=== PATIENT | female | born 1950 | race Caucasian/White ===

== ENCOUNTER → 2024-03-11 10:54 | Outpatient (REF) | payer MEDICARE, SELFPAY ==
[2024-03-11 13:01] LABS: Urine Albumin Trace (Neg - Trace); Urine Bilirubin Negative (Negative); Urine Character Very Cloudy (Clear); Urine Color Yellow; Urine Glucose Negative (Negative); Urine Ketone Negative (Negative); Urine Leukocyte 2+ (Negative); Urine Nitrite Positive (Negative); Urine Occult Blood 3+ (Negative); Urine Specific Gravity 1.025 (<1.030); Urine Urobilinogen Negative (Neg - 1+)
[2024-03-11 13:35] LABS: Urine Bacteria Many (Negative); Urine Squamous Cell 0-2 /LPF (Few)
[2024-03-11 13:36] LABS: Urine Red Blood Cell 0-2 /HPF (0-2); Urine White Cell 50-60 /HPF (0-5)
== END ==
LOC: HWLAB 10:54
PROVIDERS: ATTENDING PHYSICIAN Obstetrics & Gynecology; FAMILY PHYSICIAN Family Medicine
DX: N39.0 Urinary tract infection, site not specified (principal)
CPT/HCPCS: 81003; 81015; 87077; 87086; 87186

== ENCOUNTER 2025-03-05 16:46 | Inpatient (IN) | payer OTHER, SELFPAY ==
[2025-03-05 11:15] VITALS: BP 118/75
[2025-03-05 11:30] LABS: Hematocrit 45.6 % (37.0-47.0); Hemoglobin 14.8 g/dL (12.0-16.0); Mean Corp Hgb Conc. 32.5 g/dL (33.0-37.0); Mean Corpuscular Volume 87.7 fL (81.0-99.0); Nucleated Red Blood Cells % 0 %; Platelet Count 244 10^3/uL (130-400); Red Cell Dist. Width 14.8 % (11.5-14.5)
[2025-03-05 11:53] LABS: ALT (SGPT) 15 U/L (0-35); AST (SGOT) 15 U/L (14-36); Albumin 3.9 g/dl (3.5-5.0); Alkaline Phosphatase 87 U/L (38-126); Blood Urea Nitrogen 18 mg/dl (7-17); Calcium 9.1 mg/dl (8.4-10.2); Carbon Dioxide 27 mmol/L (22-30); Chloride 102 mmol/L (98-107); Glucose 145 mg/dl (70-99); Lipase 76 U/L (23-300); Potassium 3.6 mmol/L (3.5-5.1); Sodium 135 mmol/L (135-145); Total Protein 7.4 g/dl (6.3-8.2); eGFR > 60.00
[2025-03-05 12:09] VITALS: BP 144/83
--- NOTE | 2025-03-05 12:15 | ED.GENMED ---
History of Present Illness
<Curt Schwartz PA-C - Last Filed: 03/05/25 15:39>
General
Chief Complaint: Dehydration Symptoms
Time Seen by Provider: 03/05/25 12:04
History of Present Illness
History of Present Illness:
74-year-old female presents to the emergency department for evaluation of generalized weakness as well as diarrhea for the past 5 days. Reports that at the onset of diarrhea she began to feel very lightheaded and fell to the ground, and laid on the
ground for several hours until her was able to assist her. She reports having general aches and pains since that time but for the bulk of the past 5 days has been able to tolerate only small sips of water and no oral food. Did eat a piece
of toast this morning however. Diarrhea is voluminous, watery, and yellow in color, no blood. She reports mild lower abdominal pain and scant vomiting. No recent suspicious food intake. Prior abdominal surgical history includes cholecystectomy.
No fevers or night sweats.
Past History
<Curt Schwartz PA-C - Last Filed: 03/05/25 15:39>
Past History
ED Past Medical History: GERD and HTN
ED Past Surgical History: None
Social History
Tobacco: Non-smoker
Alcohol: None
Drug: None
Personal:
Living: with family
Review of Systems
<Curt Schwartz PA-C - Last Filed: 03/05/25 15:39>
Review of Systems
Allergies reviewed?: Yes
All Other Systems: ROS reviewed and negative except as documented in HPI and ROS
Phy Exam
<Curt Schwartz PA-C - Last Filed: 03/05/25 15:39>
Physical Exam
Physical Exam:
GEN: Well appearing, NAD, WDWN
HEENT: Oral mucosa moist, no scleral icterus
Cardiac: Regular rate and rhythm, no murmurs
Lung: No respiratory distress, no tachypnea
Abdomen: Soft, moderate diffuse lower abdominal tenderness, no rigidity or peritoneal signs
MSK: No gross deformity or injuries
Skin: Good color, no pallor or jaundice, no rashes
Neuro: AO x3, moves all extremities freely
Psych: Calm, cooperative
Course
<Curt Schwartz PA-C - Last Filed: 03/05/25 15:39>
Orders/Labs/Results
Orders:
Orders
03/05/25 11:22
Complete Blood Count/With Diff Urgent
Comprehensive Metabolic Panel Urgent
Creatine Phosphokinase Urgent
Lipase Urgent
03/05/25 12:13
CT Abd/Pel (IV only)-DH only Urgent
Comment:
Reason For Exam: lower abd pain, diarrhea
Lactated Ringers [Lr] 1,000 ml IV BOLUS
03/05/25 12:14
Add On- LAB Urgent
Tests Added?: CPK
03/05/25 14:25
Urinalysis Reflex To Culture Urgent
Date Specimen was Collected: 03/05/25
Time Specimen was Collected: 14:21
Urine Microscopic Reflex Cult Urgent
Urine Culture Urgent
RENAY Source: U
Specimen Description:
Date Specimen was Collected: 03/05/25
Time Specimen was Collected: 14:21
03/05/25 15:18
C DIFF [C difficile Antigen & Toxins] Urgent
RENAY Source: Feces/Stool
Specimen Description:
Stool Culture Urgent
RENAY Source: Feces/Stool
Specimen Description:
Abnormal Lab Results
03/05/25 03/05/25
11:22 14:25
MCHC 32.5 L g/dL
(33.0-37.0)
RDW 14.8 H %
(11.5-14.5)
Absolute Monos (auto) 0.7 H 10^3/uL
(0.1-0.6)
Lymphocytes % 19.1 L %
(20.5-51.1)
Monocytes % 9.9 H %
(1.7-9.3)
BUN 18 H mg/dl
(7-17)
Glucose 145 H mg/dl
(70-99)
Creatine Kinase 25 L U/L
(30-135)
Ur Occult Blood Reflex 2+ A
(Negative)
Leukocyte Esterase Rfl 1+ A
(Negative)
Urine RBC 3-6 A /HPF
(0-2)
Urine Bacteria (Reflex) Few A
(Negative)
Urine Albumin (Reflex) 2+ A
(Neg - Trace)
03/05/25 11:22
03/05/25 11:22
Vital Signs
Initial and Last Documented VS:
Initial Vital Signs
Temp Pulse Resp BP Pulse Ox
36.9 C 78 16 118/75 98
03/05/25 11:15 03/05/25 11:15 03/05/25 11:15 03/05/25 11:15 03/05/25 11:15
Last Documented Vital Signs
Temp Pulse Resp BP Pulse Ox
36.9 C 58 17 144/83 98
03/05/25 11:15 03/05/25 14:15 03/05/25 14:15 03/05/25 12:09 03/05/25 12:16
<Zain Lee MD - Last Filed: 03/05/25 16:25>
Orders/Labs/Results
Orders:
Orders
03/05/25 11:22
Complete Blood Count/With Diff Urgent
Comprehensive Metabolic Panel Urgent
Creatine Phosphokinase Urgent
Lipase Urgent
03/05/25 12:13
CT Abd/Pel (IV only)-DH only Urgent
Comment:
Reason For Exam: lower abd pain, diarrhea
Lactated Ringers [Lr] 1,000 ml IV BOLUS
03/05/25 12:14
Add On- LAB Urgent
Tests Added?: CPK
03/05/25 14:25
Urinalysis Reflex To Culture Urgent
Date Specimen was Collected: 03/05/25
Time Specimen was Collected: 14:21
Urine Microscopic Reflex Cult Urgent
Urine Culture Urgent
RENAY Source: U
Specimen Description:
Date Specimen was Collected: 03/05/25
Time Specimen was Collected: 14:21
03/05/25 15:18
C DIFF [C difficile Antigen & Toxins] Urgent
RENAY Source: Feces/Stool
Specimen Description:
Stool Culture Urgent
RENAY Source: Feces/Stool
Specimen Description:
Abnormal Lab Results
03/05/25 03/05/25
11:22 14:25
MCHC 32.5 L g/dL
(33.0-37.0)
RDW 14.8 H %
(11.5-14.5)
Absolute Monos (auto) 0.7 H 10^3/uL
(0.1-0.6)
Lymphocytes % 19.1 L %
(20.5-51.1)
Monocytes % 9.9 H %
(1.7-9.3)
BUN 18 H mg/dl
(7-17)
Glucose 145 H mg/dl
(70-99)
Creatine Kinase 25 L U/L
(30-135)
Ur Occult Blood Reflex 2+ A
(Negative)
Leukocyte Esterase Rfl 1+ A
(Negative)
Urine RBC 3-6 A /HPF
(0-2)
Urine Bacteria (Reflex) Few A
(Negative)
Urine Albumin (Reflex) 2+ A
(Neg - Trace)
03/05/25 11:22
10/30/25 11:22
Vital Signs
Initial and Last Documented VS:
Initial Vital Signs
Temp Pulse Resp BP Pulse Ox
36.9 C 78 16 118/75 98
03/05/25 11:15 03/05/25 11:15 03/05/25 11:15 03/05/25 11:15 03/05/25 11:15
Last Documented Vital Signs
Temp Pulse Resp BP Pulse Ox
36.9 C 58 17 144/83 98
03/05/25 11:15 03/05/25 14:15 03/05/25 14:15 03/05/25 12:09 03/05/25 12:16
<Curt Schwartz PA-C - Last Filed: 03/05/25 15:39>
MDM/Problems Addressed
MDM/Problems Addressed:
Patient's imaging shows no obvious findings suggestive of a cause of her abdominal symptoms. Incidentally it is noted that she has air in the bladder but did not have any recent instrumentation, urinalysis is negative. Enterovesicular fistula is
possible however she does not have feculent urine to suggest this as an etiology. She also had no surgical injuries that would clearly suggest that this is likely, lastly has no inflammatory bowel disease history. She was also made aware of the
finding on her CT scan of renal masses on the left kidney that will need further follow-up with MRI. She was given IV fluids, still feels weak and very unsteady with ambulation thus we will admit for further IV hydration, hopefully we can obtain
stool specimens for further completeness and clarity of her illness.
<Curt Schwartz PA-C - Last Filed: 03/05/25 15:39>
*Pulse Oximetry
SaO2: 98
Oxygen Mode of Delivery: Room air
Patient hypoxic: no
*Critical Care Note
Total Time (30-74mins, 75-104mins- exclusive of procedures): Not Applicable
ED Attending Note
<Curt Schwartz PA-C - Last Filed: 03/05/25 15:39>
-
Portions of this chart may have been created with voice recognition software.� Occasional wrong word or��sound alike� substitutions may have occurred due to the inherent limitations of voice recognition software.
<Zain Lee MD - Last Filed: 03/05/25 16:25>
ED Attending Note
Patient seen and examined by attending physician: Yes
ED Attending Note:
I have seen and evaluated the patient with a [id number] encounter. I have spoken to the advance practicer provider and involved in the medical history, the physical exam, medical decision making.
Evaluation and management service: agree unless noted differently below.
Results interpretation: agree unless noted differently below.
Focused HPI: 74-year-old female with history as noted presents for fatigue, diarrhea, vomiting over the past few days. Seen by her primary doctor and they were concerned for dehydration. She denies abdominal pain or fever. Denies other acute
complaints.
Physical exam: Awake alert no distress. Vital signs normal. Abdomen soft and nontender.
Medical Decision Makin-year-old female presents with fatigue associated with diarrhea and vomiting and increased generalized weakness. Labs were sent off including a CBC and a CMP which showed no clinically significant abnormalities.
Urinalysis contaminated but no signs of acute infection. CT showed new renal mass as well as air in the urinary bladder of unclear etiology. Will admit for continued workup and IV hydration.
Discharge Plan
Departure
Patient Disposition: Admit
Date of Disposition: 03/05/25
Time of Disposition: 15:26
Admit to: Med/Surg
Presentation/result/management discussed w/ accepting MD/DO: Hospitalist
Discharge Problem:
Diarrhea, Acute dehydration, Renal mass
Prescriptions:
No Action
losartan 50 mg Tablet
50 mg PO NOON
famotidine 40 mg Tablet
40 mg PO NOON
metoprolol succinate 25 mg Tablet Extended Release 24 Hr
25 mg PO NOON
sertraline 50 mg Tablet
25 mg PO NOON
loperamide 2 mg Tablet
2 mg PO BIDPRN PRN (Reason: diarrhea)
acetaminophen 325 mg tablet
325 mg PO DAILY
Referrals:
Jose Alberto Ag MD [Family Provider, Family Practice]
Interventions
Interventions:
*Risk Screen - Suicide Last Done: 03/05/25 11:15
*General Assessment Last Done: 03/05/25 11:15
*Neglect/Abuse Screening Last Done: 03/05/25 11:15
*ED- Fall Risk Assessment Last Done: 03/05/25 11:15
*ED COVID-19 Vaccine History Last Done: 03/05/25 11:15
*ED Influenza Vaccine History Last Done: 03/05/25 11:15
ED- Cardiac Assessment Last Done: 03/05/25 16:08
ED- Neurological Assessment Last Done: 03/05/25 12:34
ED- Pulmonary Assessment Last Done: 03/05/25 16:08
Discharge Date and Time
Print Language: MALAGASY
[2025-03-05] MEDS: LR 1000 IV (12:25)
[2025-03-05 12:34] VITALS: BMI 32.9
[2025-03-05 14:50] LABS: Urine Character Clear (Clear)
--- NOTE | 2025-03-05 16:30 | HPS.HSE ---
Addendum entered and electronically signed by Primitivo Weaver MD 03/05/25 17:10:
I saw and examined the patient.
The LUBRICATION SUPERVISOR's note was reviewed and I agree with the note.
Comment:
74-year-old female past medical history of urinary urgency, anxiety, depressive disorder, hypertension, hyperlipidemia is presenting from home with weakness. Patient was complaining of severe volume in his diarrhea. States that symptoms started 5
days ago. States that she started feeling lightheaded. Patient fell to the ground and stayed on the ground for several hours because she was too weak to get up. With her to come and assist her. Also complaining of generalized body aches
and pains. Not able to tolerate much p.o. intake. States some mild lower abdominal pain. Also states of foul-smelling urine. States no bowel movement since yesterday
General: in ER bed comfortable
HEENT: NormoCephalic, Moist mucous membranes and Atraumatic
Respiratory: Rales, oxygen, tachypneic
Cardiac: S1-S2, regular
GI: Soft, + Tenderness throughout, Non Distended and Normal Bowel Sounds; No Organomegaly
Rectal: Deferred by Provider
Musculoskeletal: No Clubbing, No Cyanosis and positive lower extremity edema
Skin: No Rash
Neuro: AO x 3 and Nonfocal/grossly intact
Psych: Calm
Impression
Diarrhea likely secondary to viral versus bacterial gastroenteritis in the setting of prior right hemicolectomy
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
Dehydration
Incidental finding of left renal mass
Primary hypertension
Hyperlipidemia
Mood disorder
Plan
Stool studies including C. difficile, stool cultures
Check ova and parasite
Keep patient on IV fluids
Liquid diet for now and advance as tolerated
Check orthostatics
Hold blood pressure meds for 24 hours and reassess
Urology eval
DVT prophylaxis
I spent a total of 80 minutes with the patient or on the floor. More than 50% of this time involved counseling and coordination of care.
Original Note:
Family Physician
-
Family Physician: Jose Alberto Ag
Chief Complaint
-
Vomiting and Diarrhea
History of Present Illness
Patient is a 74 y/o female past medial history of hypertension, and anxiety who presents with vomiting and diarrhea for 5 days. Patient reports voluminous amount of mostly yellow liquid diarrhea without blood, last episode yesterday. She reports
many episode of vomiting. She was able to tolerate a single piece of toast and small amount of orange juice this morning, but remains very nausea as previously she could only tolerate small amount of water. She reports generalized weakness and
muscle aches/pain, but denies fevers.She denies recent antibiotics, recent travel, unusual food intake or contacts with similar symptmos
Further discussion with patient reveal she has been having intermittent urinary problems since the summer. She reports intermittent episodes of very foul smelling urine with dysuria. She reports some when she urinate it makes a strange noise and
sometimes she passes air.
Medical History
Past Medical History
Past Medical History: Reports Other
Additional Past Medical History:
Essential Hypertension
Anxiety
Diverticulosis / Diverticulitis
Past Surgical History: Reports Other
Additional Past Surgical History:
Colon Resection
Cholecystectomy
Bilateral Cataracts
Tonsillectomy
Social History
Tobacco: Non-smoker
Alcohol: None
Family History
Family History: Other (Mother: Dementia, alive at age 95)
Allergies / Home Medications
Allergies reflects when Allergies were last updated in [employer].
Home Medications with original date entered in [employer]
Allergy/Medication List:
Allergies
Allergy/AdvReac Type Severity Reaction Status Date / Time
No Known Allergies Allergy Verified 03/05/25 11:17
Home Medications
famotidine 40 mg tablet 40 mg PO NOON gerd 03/09/23
losartan 50 mg tablet 50 mg PO NOON Blood Pressure 03/09/23
metoprolol succinate 25 mg tablet,extended release 24 hr 25 mg PO NOON Blood Pressure 03/09/23
sertraline 50 mg tablet 25 mg PO NOON Mental Health/Anxiety 03/09/23
acetaminophen 325 mg tablet 325 mg PO DAILY mild pain 03/05/25
loperamide 2 mg tablet 2 mg PO BIDPRN PRN diarrhea 03/05/25
Review of Systems
-
A 12 point ROS was completed and negative except as noted: Yes
Constitutional: Denies Fever
Respiratory: Denies Cough or Trouble Breathing
Cardiac: Denies Chest Pain or Palpitations
Abdomen/GI: Reports See HPI
Physical Exam
Vital Signs
Vital Signs
Temp Pulse Resp BP Pulse Ox
98.5 F 58 17 144/83 98
03/05/25 11:15 03/05/25 14:15 03/05/25 14:15 03/05/25 12:09 03/05/25 12:16
Physical Exam
General: Comfortable and Conversant
HEENT: NormoCephalic, Anicteric and Atraumatic
Respiratory: Clear and Non Labored Respirations
Cardiac: S1/S2 and Regular Rhythm
GI: Soft, Non Distended and Tender (Mild throughout without rebound or guarding)
Rectal: Deferred by Provider
Musculoskeletal: No Clubbing, No Cyanosis and No Edema
Skin: Warm and Dry
Neuro: Awake, Alert, Oriented and Nonfocal/grossly intact
Psych: Calm
Laboratory Results
-
03/05/25 11:22
03/05/25 11:22
Laboratory Results
Total Bilirubin 0.7 mg/dl (0.2-1.3) 03/05/25 11:22
AST 15 U/L (14-36) 03/05/25 11:22
ALT 15 U/L (0-35) 03/05/25 11:22
Alkaline Phosphatase 87 U/L (38-126) 03/05/25 11:22
Lipase 76 U/L (23-300) 03/05/25 11:22
Abd/Pelvis CT:
1. Ill-defined mass within the lower pole of the left kidney, measuring 2.4 cm in diameter. Additional ill-defined mass within the upper pole of the left kidney measuring 2.4 cm in diameter. Findings are concerning for renal cell carcinoma. Consider
postcontrast MRI of the abdomen for further characterization and/or renal ultrasound.
2. Air within the urinary bladder. This may be related to recent instrumentation. In the absence of instrumentation, enteric vesicular fistula should be excluded.
Data Reviewed
-
CT Scan: Report Reviewed by me
Lab Data: Labs Reviewed by me
Impression/Plan
-
Gastroenteritis, suspect viral in nature
-Check stool studies
-Allow clear liquids
-Continue IVFs
Air with Urinary Bladder
-Symptoms raise concern for possible colovesicular fistula
-Consult colorectal surgery
Left Renal Masses, possible renal cell carcinoma
-Consult Urology
Essential Hypertension
-Hold losartan and metoprolol for now
Anxiety
-Continue sertraline
DVT proph: Lovenox
Code Status: Full Code
--- NOTE | 2025-03-05 18:00 | CON.MD ---
Consultation - Medical
-
see dictated note
pt with hx of right nayely colectomy at [facility] in 2019 for diverticular dz and dyspalstic polyp
had colpocleisis with dr pablo in 2022
has had recurrent UTI's over the last 18 months
presents now with weakness, dizziness, loose stools
has some chronic urinary sx's over the last 3 months; dysuria/odor/odd sound when urinating but no erickson pneumaturia or fecaluria
had ct- air in bladder with adjacent colon- ? fistula
also ? masses in left kidney
plan
pt stable
hydrate/ucx/iv antibx
air in bladder could be due to UTI- but fistula possible- colorectal to evaluate- at some point will need cysto
down the round- MRI for left renal masses
reviewed with pt and will follow
Consultation
-
Date/Time Consultation Requested: 03/05/25 at 4pm
Date/Time Consultation Performed: 03/05/25 at 6pm
Requesting Provider: ER
Performing Provider: Dr Carrasco
Reason for Consultation: renal mass- air in bladder
[2025-03-05] MEDS: NSS 1000 IV (18:45)
[2025-03-05] MEDS: LOVENOX 40 MG SC (18:46)
[2025-03-05 19:07] VITALS: BP 130/74
--- NOTE | 2025-03-05 20:36 | CON.CRS ---
Consultation
-
Date/Time Consultation Performed: 03/05/2025
Performing Provider: Markus Michelle MD
Reason for Consultation: Colovesical fistula
Medical History
-
History of Present Illness:
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 Whitten), diverticulitis (many flares over the years, no flare since before 2018) who presents with
weakness and diarrhea for 5 days. On Sunday, she felt so weak, she slipped out of her bed and fell on the floor. She was not able to get up for several hours. She has pain along her right side. Over the ensuing days, she was sleeping a lot, had
poor p.o. intake and nausea with multiple episodes of diarrhea each day. She reported dizziness as well. There was 1 day where she thought the stool was blackish, but denies gross blood. She denies fevers, chest pain or SOB. She does complain of
pneumaturia and foul-smelling urine for several months. She has been treated for a low-grade UTI since October.
In the ED, WBC 7.3, UA with bacteria and positive LE, negative nitrates. CT scan showed left kidney mass concerning for RCC as well as air within the urinary bladder, concerning for colovesical fistula.
Past Medical History
Past Medical History: Other (As above)
Past Surgical History: Other (Colpocleisis by Dr. Pacheco, right hemicolectomy 2019, cholecystectomy at 21 years old)
Social History
Tobacco: Non-Smoker
Alcohol: Occasional (Rare)
Drug: None
Personal:
Living: With Family
Family History
Family History: Other (Denies CRC)
Allergies / Home Medications
Allergy/AdvReac Type Severity Reaction Status Date / Time
No Known Allergies Allergy Verified 03/05/25 11:17
�Medication �Instructions �Recorded �Confirmed �Type
famotidine 40 mg tablet 40 mg PO NOON gerd 03/09/23 03/05/25 History
losartan 50 mg tablet 50 mg PO NOON Blood Pressure 03/09/23 03/05/25 History
metoprolol succinate 25 mg 25 mg PO NOON Blood Pressure 03/09/23 03/05/25 History
tablet,extended release 24 hr
sertraline 50 mg tablet 25 mg PO NOON Mental Health/Anxiety 03/09/23 03/05/25 History
acetaminophen 325 mg tablet 325 mg PO DAILY mild pain 03/05/25 03/05/25 History
loperamide 2 mg tablet 2 mg PO BIDPRN PRN diarrhea 03/05/25 03/05/25 History
Review of Systems
-
A 10 point review of systems was completed, and was negative except as per HPI.
Physical Exam
Vital Signs
Temp 97.5 F 03/05/25 19:07
Pulse 65 03/05/25 19:07
Resp Rate 16 03/05/25 19:07
Blood pressure 130/74 03/05/25 19:07
SaO2 99 03/05/25 19:07
03/04/25 03/05/25 03/06/25
06:59 06:59 06:59
Actual Weight 87 kg
Body Mass Index (BMI) 32.9
Lab Results / Allergies
03/05/25 11:22
03/05/25 11:22
WBC 7.3 10^3/uL (4.8-10.8) 03/05/25 11:22
Hgb 14.8 g/dL (12.0-16.0) 03/05/25 11:22
Hct 45.6 % (37.0-47.0) 03/05/25 11:22
Plt Count 244 10^3/uL (130-400) 03/05/25 11:22
Abs Immat Gran (auto) 0.0 10^3/uL (0-0.05) 03/05/25 11:22
Neutrophils % 69.0 % (42.2-75.2) 03/05/25 11:22
Allergy/AdvReac Type Severity Reaction Status Date / Time
No Known Allergies Allergy Verified 03/05/25 11:17
Physical Exam
General: Well Developed, Well Nourished and No Apparent Distress
HEENT: Normocephalic and Atraumatic
Respiratory: Non Labored Respirations
Cardiac: S1/S2
GI: Soft, Non Distended and Tender (Minimally to mildly tender in the suprapubic to LLQ, no rebound or guarding)
Skin: Warm and Dry
Neuro: AO x 3
Data Reviewed
-
CT Scan: Image Personally Visualized and interpreted and Discussed with Patient
Labs: Labs Reviewed by me and Discussed with Patient
Assessment / Plan
-
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 Whitten), diverticulitis (many flares over the years, no flare since before 2019) who presents with
weakness and diarrhea for 5 days. Additionally reports pneumaturia and chronic UTI for several months. Last colonoscopy 06/[address] Madera, which showed a healthy ileocolic anastomosis, transverse TA, rectal HP, random biopsies for microscopic
colitis were negative and multiple diverticula in the sigmoid, descending and transverse colon.
In the ED, WBC 7.3, UA with bacteria and positive LE, negative nitrates. CT scan showed left kidney mass concerning for RCC as well as air within the urinary bladder, concerning for colovesical fistula.
�Likely dehydrated due to gastroenteritis, appreciate hospitalist
� Concern for colovesical fistula on CT; clinically, high suspicion for colovesical fistula due to prior history of diverticulitis and report of pneumaturia
�Recommend CT AP with p.o. and rectal contrast (no IV contrast) to confirm colovesical fistula
�Explained the treatment for colovesical fistula is surgery; however, this can usually be done electively and any infectious complications can usually be treated medically with antibiotics; if patient clinically improves, okay for discharge from my
standpoint after CTAP is complete and follow-up to discuss definitive management
�Appreciate urology consult; patient will need MRI outpatient
� Appreciate hospitalist
[2025-03-05 23:21] VITALS: BP 129/70
[2025-03-06] MEDS: NSS 1000 IV (04:34)
[2025-03-06 06:40] LABS: Hematocrit 38.5 % (37.0-47.0); Hemoglobin 12.4 g/dL (12.0-16.0); Mean Corp Hgb Conc. 32.2 g/dL (33.0-37.0); Mean Corpuscular Volume 90.4 fL (81.0-99.0); Platelet Count 219 10^3/uL (130-400); Red Cell Dist. Width 14.7 % (11.5-14.5)
[2025-03-06 07:00] VITALS: BP 141/69
[2025-03-06 07:27] LABS: Blood Urea Nitrogen 11 mg/dl (7-17); Calcium 8.5 mg/dl (8.4-10.2); Carbon Dioxide 27 mmol/L (22-30); Chloride 103 mmol/L (98-107); Estimated Creatinine Clearance 89 ml/min; Glucose 92 mg/dl (70-99); Potassium 3.5 mmol/L (3.5-5.1); Sodium 134 mmol/L (135-145); eGFR > 60.00
--- NOTE | 2025-03-06 07:49 | W.PN.URO.CBU ---
Today's Communication / Plan
-
check ucx
check ct per colorectal
Assessment / Plan
-
general malaise and weakness
? if air in bladder simply recurrent UTI- or fistula; awaiting ucx/ ct with oral contrast- colorectal following
at some point- will need outpt MRI given left kidney findings
Diagnosis
-
Date of Service: March 06, 2025
-
Patient Diagnosis:
hx of prolapse repair
hx of recurrent UTI
? ev fistula
? left RCC
Subjective
-
pt still says she doesnt feel well- but hard time verbalizing what specifically is the problems
nl bowel movement this am
says her urination is normal
Objective
-
Vital Signs
Temp Pulse Resp BP Pulse Ox
97.9 F 66 18 129/70 97
03/05/25 23:21 03/05/25 23:21 03/05/25 23:21 03/05/25 23:21 03/05/25 23:21
Intake and Output
03/05/25 03/06/25 03/07/25
06:59 06:59 06:59
Intake Total 480 / 480
Balance 480 / 480
Intake:
Oral fluids 480 / 480
Other:
Number of approximated SMALL 1
amounts of urine
Number of approximated MODERATE 3
amounts of urine
Laboratory Results
03/06/25 05:39
03/06/25 05:39
Physical Exam
-
General - no acute distress
Abdomen - soft, non-tender
Genitalia - normal- no prolapse/mass or discharge
Skin - warm & dry with no rash
Neuro - AOx3, no motor deficits
Extremities - no clubbing, no cyanosis, no edema
[2025-03-06] MEDS: OMNIPAQUE 50 ML PO (08:34)
--- NOTE | 2025-03-06 08:42 | W.PN.HOSP.TC ---
Addendum entered and electronically signed by Arun Linton MD 03/06/25 21:54:
Attending Addendum-
I saw and evaluated the patient. I reviewed the resident�s note and agree with findings and plan as documented in the resident�s note. Sub: continues to have significant loose stools and feels dizzy on ambulation. tolerating clears. Denies abd pain
NV fevers chills. increased urinary frequency. Full 12 point ROS reviewed and negative except as documented Exam: Vitals reviewed in chart GEN-NAD heart RRR lungs clear abd soft NT ND pos BS skin-dry
Plan:
# Acute viral enteritis
-continues to have significant diarrhea with volume depletion
-stool studies-neg thus far
-advance to LR diet
-Continue IVF
# Air within the Urinary Bladder
-Symptoms raised concern for possible colovesicular fistula
-colorectal surgery input appreciated
-repeat CT a/p for eval 03/06-There is no CT evidence for colovesical fistula
#Left Renal Masses, possible renal cell carcinoma
-appreciate Urology input-doubt RCC
-OP MRI for eval
#UTI
-urine by-[id number] pend
-start Augmentin based on previous cx
#Hyponatremia-mild
-hypovolemic- cont IVF, repeat BMP in am
#Essential Hypertension
-Hold losartan and metoprolol for now
#Anxiety
-Continue sertraline
DVT proph: Lovenox
Code Status: Full Code
Dispo DC home in am
ACP
Patient consented to discuss, was alone, time spent explanation of advance directives, changes in health status, patient�s health care wishes if the patient becomes unable to make health decisions, goals of care, code status, and prognosis- 16
minutes
Time spent coordinating care, review of plan of care with resident, personally reviewed previous records in EMR, med rec, labs, radiology, d/w nursing, family total time documented is exclusive of any additional time listed that was spent in advance
care planning discussion -�51 minutes
Original Note:
Today's Communication/Plan
-
CT abdomen pelvis with p.o. contrast demonstrated no fistula.
Urine culture demonstrated E. coli. Sensitivities pending. Empiric Augmentin initiated.
Stool cultures pending.
Monitoring volume status and blood pressures. Likely can resume antihypertensive soon.
Assessment / Plan
Assessment / Plan
Impression:
74-year-old female past medical history of urinary urgency, anxiety/depression, HTN, HLD is presenting from home with weakness/lightheadedness and large volume diarrhea for 5 days, likely secondary to viral versus bacterial gastroenteritis in the
setting of prior right hemicolectomy.
5 days ago, patient slipped from bed to the floor and stayed on the ground for several hours because she was too weak to get up. Waited for to come and assist her. On following days, she was sleeping more, had decreased p.o. intake,
nausea, and multiple episodes diarrhea daily. Also complaining of generalized body aches and pains. Endorsed blackish stool 1 day, but denied gross blood. No bowel movement for 2 days.
Endorsed pain along her right side. Endorsed pneumaturia, foul-smelling urine for several months, and mild lower abdominal pain. She has been treated for low-grade UTI since October. Denied fevers, chest pain, SOB.
In the ED, WBC 7.3, UA with bacteria and positive LE, negative nitrates. CT scan showed left kidney mass concerning for RCC as well as air within the urinary bladder, concerning for colovesical fistula.
PSH:
Right hemicolectomy 2019 for diverticulitis and colon polyp
Colpocleisis 2022
Cholecystectomy at 21 years old
Abd/Pelvis CT with IV contrast:
1. Ill-defined mass within the lower pole of the left kidney, measuring 2.4 cm in diameter. Additional ill-defined mass within the upper pole of the left kidney measuring 2.4 cm in diameter. Findings are concerning for renal cell carcinoma. Consider
postcontrast MRI of the abdomen for further characterization and/or renal ultrasound.
2. Air within the urinary bladder. This may be related to recent instrumentation. In the absence of instrumentation, enteric vesicular fistula should be excluded.
Last colonoscopy 06/[address] Madera, which showed a healthy ileocolic anastomosis, transverse TA, rectal HP, random biopsies for microscopic colitis were negative and multiple diverticula in the sigmoid, descending and transverse colon.
Plan:
#Gastroenteritis, suspect viral in nature
#Dehydration
Right hemicolectomy in 2019 at [facility] for diverticular disease and dysplastic polyp
- Stool norovirus: negative
� Stool C. difficile antigen and toxin: negative
� Stool culture: Pending
� Stool ova and parasites: Pending
- Allow clear liquids. Advance as tolerated
- Continue IVFs: Renewed
� Orthostatic vitals pending
#Air in urinary Bladder, foul-smelling urine.
Concern for colovesicular fistula versus UTI
- Recurrent UTIs in last 18 months
� UA not convincing for UTI: 11-15 squamous epithelial cells, few bacteria, leukocyte esterase 1+, nitrates negative, WBC 3-5, RBC 3-6
- Urine cx: E. coli. Sensitivities pending
� Started Augmentin 500 mg twice daily empirically
Colpocleisis [address] Pacheco (vaginal culture, typically for pelvic organ prolapse)
Colorectal surgery consulted
- CT abdomen pelvis with p.o. and rectal contrast (no IV contrast) to confirm colovesicular fistula: No fistula
� Explained the treatment for colovesical fistula is surgery; however, this can usually be done electively and any infectious complications can usually be treated medically with antibiotics; if patient clinically improves, okay for discharge from my
standpoint after CTAP is complete and follow-up to discuss definitive management
#Left Renal Masses, possible renal cell carcinoma
Urology consulted
- Hydrate, urine culture, IV antibiotics
- Cystoscopy outpatient
- MRI outpatient for left renal masses
#Essential Hypertension
-Hold losartan and metoprolol for 24 hours and reassess. BP stable in 130-140s. Plan to resume tomorrow after patient demonstrates tolerating solid food and oral rehydration
#Anxiety and depression
-Continue sertraline
DVT proph: Lovenox
Code Status: Full Code
Anticipated Discharge: Within 24 hours
Subjective/Interval History
-
Date of Service: March 06, 2025
No acute events overnight. Normal bowel movement and urinary voiding this morning. Patient states she feels less weak/she feels better overall. Endorses continued large-volume watery diarrhea.
Objective Data
-
Labs:
Lab Results
03/05/25 03/05/25 03/06/25
11:22 14:25 05:39
WBC 7.3 7.0
RBC 5.20 4.26
Hgb 14.8 12.4
Hct 45.6 38.5
MCV 87.7 90.4
MCH 28.5 29.1
MCHC 32.5 L 32.2 L
RDW 14.8 H 14.7 H
Plt Count 244 219
MPV 9.5 9.6
Abs Immat Gran (auto) 0.0
Absolute Neuts (auto) 5.0
Absolute Lymphs (auto) 1.4
Absolute Monos (auto) 0.7 H
Absolute Eos (auto) 0.1
Absolute Basos (auto) 0.1
Immature Gran % 0.1
Neutrophils % 69.0
Lymphocytes % 19.1 L
Monocytes % 9.9 H
Eosinophils % 1.2
Basophils % 0.7
Nucleated RBC % 0
Sodium 135 134 L
Potassium 3.6 3.5
Chloride 102 103
Carbon Dioxide 27 27
BUN 18 H 11
Creatinine 0.7 0.5 L
Estimated Creat Clear 89
eGFR > 60.00 > 60.00
Glucose 145 H 92
Calcium 9.1 8.5
Total Bilirubin 0.7
AST 15
ALT 15
Alkaline Phosphatase 87
Creatine Kinase 25 L
Total Protein 7.4
Albumin 3.9
Lipase 76
Urine Color Yellow
Urine Clarity Clear
Urine pH 6.5
Ur Specific [place] 1.005
Urine Ketones Negative
Ur Occult Blood Reflex 2+ A
Urine Nitrite (Reflex) Negative
Urine Bilirubin Negative
Urine Urobilinogen 1+
Leukocyte Esterase Rfl 1+ A
Urine RBC 3-6 A
Urine WBC (Reflex) 3-5
Ur Squamous Epith Cells 11-15
Urine Bacteria (Reflex) Few A
Urine Glucose Negative
Urine Albumin (Reflex) 2+ A
03/05/25 14:25 Urine Urine Culture - Preliminary
Escherichia coli
03/05/25 22:21 Feces/Stool Norovirus (PCR) - Final
Negative for Norovirus GI and GII.
03/05/25 22:23 Feces/Stool C. difficile GDH Antigen & Toxins - Final
Negative for toxigenic C.difficile
Vital Signs:
Vital Signs
Temp Pulse Resp BP Pulse Ox
97.9 F 66 18 129/70 97
03/05/25 23:21 03/05/25 23:21 03/05/25 23:21 03/05/25 23:21 03/05/25 23:21
I&O
03/05/25 03/06/25 03/07/25
06:59 06:59 06:59
Intake Total 480 / 480
Balance 480 / 480
Weight - last 4 days
03/04/25 03/05/25 03/06/25 03/07/25
06:59 06:59 06:59 06:59
Actual Weight 87 kg
Review of Systems
-
History Source: Patient
All other systems: Reviewed and negative
Physical Exam
-
General: Well Developed, Well Nourished, No Apparent Distress, Comfortable and Conversant
HEENT: Normocephalic, Atraumatic, Anicteric, Nose Appears Normal and Ears Appear Normal
Respiratory: Clear to Auscultation
Cardiac: Regular Rhythm
GI: Soft, Nontender, Nondistended and Normal Bowel Sounds
Musculoskeletal: No Clubbing, No Cyanosis, Edema, Right Lower Extrem and Edema, Left Lower Extrem
Skin: Warm and Dry
Neuro: Awake and Alert
Psych: Calm
--- NOTE | 2025-03-06 09:14 | W.PN.CRS1 ---
Today's Communication / Plan
-
CT po and rectal contrast today
Assessment/Plan
-
74-year-old female with PMH of HTN, HLD, GERD, anxiety depression, ascending colon tubulovillous adenoma with HGD s/p RHC at [facility] in [address] ([address] Whitten), diverticulitis (many flares over the years, no flare since before 2019) who presents with
weakness and diarrhea for 5 days. Additionally reports pneumaturia and chronic UTI for several months. Last colonoscopy 06/[address] Madera, which showed a healthy ileocolic anastomosis, transverse TA, rectal HP, random biopsies for microscopic
colitis were negative and multiple diverticula in the sigmoid, descending and transverse colon.
WBC: 7.0, Hgb 12.4
Creatinine: 0.5
�Likely dehydrated due to gastroenteritis, appreciate hospitalist
� Concern for colovesical fistula on CT; clinically, high suspicion for colovesical fistula due to prior history of diverticulitis and report of pneumaturia
�CT AP with p.o. and rectal contrast (no IV contrast) to confirm colovesical fistula- pending this AM
�Per Dr. Michelle the treatment for colovesical fistula is surgery; however, this can usually be done electively and any infectious complications can usually be treated medically with antibiotics; if patient clinically improves, okay for discharge from
our standpoint after CTAP is complete and follow-up to discuss definitive management
�Appreciate urology consult; patient will need MRI outpatient
� Appreciate hospitalist
Subjective Data
Subjective Data
Date of Service: March 06, 2025
Patient states she feels like her abdominal pain has improved. Denies nausea or vomiting. No belly pain at the moment. Has bowel function. Denies any fecal material in her urine.
Objective Data
-
Vital Signs
Temp Pulse Resp BP Pulse Ox
97.9 F 66 18 129/70 97
03/05/25 23:21 03/05/25 23:21 03/05/25 23:21 03/05/25 23:21 03/05/25 23:21
Intake & Output
03/05/25 03/06/25 03/07/25
06:59 06:59 06:59
Intake Total 480 / 480
Balance 480 / 480
Intake:
Oral fluids 480 / 480
Other:
Number of approximated SMALL 1
amounts of urine
Number of approximated MODERATE 3
amounts of urine
Lab Results
03/06/25 05:39
03/06/25 05:39
Physical Exam
-
General: No Acute Distress and AOx3
Abdomen: Soft, Non Distended and Non Tender
Skin: Warm and Dry
[2025-03-06 11:00] VITALS: BP 139/69; BP 139/75; BP 141/72; PULSE 61; PULSE 70; PULSE 80
[2025-03-06 11:39] VITALS: BMI 32.9
--- NOTE | 2025-03-06 12:13 | PTCARENOTE ---
pt tolerating clears. discussed diet with resident. pt to be advanced to low residue. order placed.
[2025-03-06] MEDS: ZOLOFT 25 MG PO (12:17)
[2025-03-06] MEDS: PEPCID 40 MG PO (12:17)
[2025-03-06 15:00] VITALS: BP 135/72
--- NOTE | 2025-03-06 15:24 | CM ---
Patient seen at bedside with patient present on [address] Patient states that they live in a 2 story home with first floor suite. Patient has a walker and a cane at home. Patient has not needed VN for a very long time and does not remember
the name of the agency. Patient PCP is Dr. Ag and they use the [facility] on [facility] [address] [facility]. Patient is independent prior to admission of ADL's and IADL's. Patient is still driving. Patient plan is for discharge home with VN if anything is
needed. CM will continue to follow for discharge planning needs.
Plan; home with VN vs SNF pending medical treatment plan
[2025-03-06] MEDS: LOVENOX SC (17:35)
[2025-03-06] MEDS: AUGMENTIN 500 MG/125 MG 1 TABLET PO (20:29)
[2025-03-06 23:19] VITALS: BP 145/68
[2025-03-07 06:03] LABS: Hematocrit 39.2 % (37.0-47.0); Hemoglobin 12.9 g/dL (12.0-16.0); Mean Corp Hgb Conc. 32.9 g/dL (33.0-37.0); Mean Corpuscular Volume 88.1 fL (81.0-99.0); Nucleated Red Blood Cells % 0 %; Platelet Count 249 10^3/uL (130-400); Red Cell Dist. Width 14.6 % (11.5-14.5)
[2025-03-07 06:33] LABS: ALT (SGPT) 10 U/L (0-35); AST (SGOT) 12 U/L (14-36); Albumin 3.2 g/dl (3.5-5.0); Alkaline Phosphatase 70 U/L (38-126); Blood Urea Nitrogen 9 mg/dl (7-17); Calcium 8.4 mg/dl (8.4-10.2); Carbon Dioxide 28 mmol/L (22-30); Chloride 104 mmol/L (98-107); Estimated Creatinine Clearance 89 ml/min; Glucose 98 mg/dl (70-99); Potassium 3.6 mmol/L (3.5-5.1); Sodium 138 mmol/L (135-145); Total Protein 6.1 g/dl (6.3-8.2); eGFR > 60.00
[2025-03-07 07:25] VITALS: BP 127/76
[2025-03-07] MEDS: AUGMENTIN 500 MG/125 MG 1 TABLET PO (08:12)
--- NOTE | 2025-03-07 10:38 | W.PN.URO.CBU ---
Today's Communication / Plan
-
ready for d/c
Assessment / Plan
-
general malaise and weakness
? uti improving once home witry syuppression with methenamine 1000mgs bid and follow up dr zazueta for renal masses
at some point- will need outpt MRI given left kidney findings
Diagnosis
-
Date of Service: March 07, 2025
-
Patient Diagnosis:
Post Op Day:
Patient Diagnosis:
hx of prolapse repair
hx of recurrent UTI
? ev fistula
? left RCC
Subjective
-
feels baseline
Objective
-
Vital Signs
Temp Pulse Resp BP Pulse Ox
97.5 F 67 16 127/76 97
03/07/25 07:25 03/07/25 07:25 03/07/25 07:25 03/07/25 07:25 03/07/25 07:25
Intake and Output
03/06/25 03/07/25 03/08/25
06:59 06:59 05:59
Intake Total 480 / 480 2820 / 2820
Balance 480 / 480 2820 / 2820
Intake:
Oral fluids 480 / 480 2520 / 2520
IV fluids (Total) 300 / 300
Other:
Number of approximated SMALL 1
amounts of urine
Number of approximated MODERATE 3 2
amounts of urine
Number of unmeasured liquid
stools
Rectum 1
Laboratory Results
03/07/25 05:34
03/07/25 05:34
Review of Systems
-
: Dysuria
Physical Exam
-
General - well developed, well nourished, no acute distress
Chest - clear bilaterally
Abdomen - soft, non-tender, positive bowel sounds, no CVAT, no incisional pain or distention
Genitalia - normal
Rectal - normal
Skin - warm & dry with no rash
Neuro - AOx3, no motor deficits
Extremities - no clubbing, no cyanosis, no edema
Incision - clean, dry
Dressing - clean, dry, intact
Care Review
Data Reviewed
Discussed with: Hospitalist
CT Scan: Image Pers Reviewed
[2025-03-07] MEDS: PEPCID 40 MG PO (12:36)
[2025-03-07] MEDS: ZOLOFT 25 MG PO (12:38)
--- NOTE | 2025-03-07 13:01 | W.PN.HOSP.TC ---
Addendum entered and electronically signed by Alpesh Vega MD 03/07/25 14:27:
I saw and evaluated the patient. I reviewed the resident�s note and agree with findings and plan as documented in the resident�s note.
Viral gastroenteritis -resolved no any symptoms.
Ruled out UTI -ruled out and clinically do not see any indication for continuation of Augmentin at discharge. Discontinue further antibiotics.
Air in urinary bladder -corrective surgery evaluated and low concern for any vesicle fistulous. Patient will follow-up with colorectal surgery in office.
Renal mass -urology evaluated and recommended outpatient MRI for better clarification.
Patient cleared for discharge to home today
Original Note:
Today's Communication/Plan
-
Discontinue antibiotics, as the urinary urgency was likely due to IV fluids and her bacteriuria is otherwise asymptomatic.
Stable for discharge today.
Advised to follow-up with urology for MRI outpatient for left renal masses
She suggested follow-up with the elective surgery for diverticulitis history.
Assessment / Plan
Assessment / Plan
Impression:
74-year-old female past medical history of urinary urgency, anxiety/depression, HTN, HLD is presenting from home with weakness/lightheadedness and large volume diarrhea for 5 days, likely secondary to viral versus bacterial gastroenteritis in the
setting of prior right hemicolectomy.
5 days ago, patient slipped from bed to the floor and stayed on the ground for several hours because she was too weak to get up. Waited for to come and assist her. On following days, she was sleeping more, had decreased p.o. intake,
nausea, and multiple episodes diarrhea daily. Also complaining of generalized body aches and pains. Endorsed blackish stool 1 day, but denied gross blood. No bowel movement for 2 days.
Endorsed pain along her right side. Endorsed pneumaturia, foul-smelling urine for several months, and mild lower abdominal pain. She has been treated for low-grade UTI since October. Denied fevers, chest pain, SOB.
In the ED, WBC 7.3, UA with bacteria and positive LE, negative nitrates. CT scan showed left kidney mass concerning for RCC as well as air within the urinary bladder, concerning for colovesical fistula.
PSH:
Right hemicolectomy 2019 for diverticulitis and colon polyp
Colpocleisis 2022
Cholecystectomy at 21 years old
Abd/Pelvis CT with IV contrast:
1. Ill-defined mass within the lower pole of the left kidney, measuring 2.4 cm in diameter. Additional ill-defined mass within the upper pole of the left kidney measuring 2.4 cm in diameter. Findings are concerning for renal cell carcinoma. Consider
postcontrast MRI of the abdomen for further characterization and/or renal ultrasound.
2. Air within the urinary bladder. This may be related to recent instrumentation. In the absence of instrumentation, enteric vesicular fistula should be excluded.
Last colonoscopy 06/[address] Madera, which showed a healthy ileocolic anastomosis, transverse TA, rectal HP, random biopsies for microscopic colitis were negative and multiple diverticula in the sigmoid, descending and transverse colon.
Plan:
#Gastroenteritis, suspect viral in nature
#Dehydration
Right hemicolectomy in 2019 at [facility] for diverticular disease and dysplastic polyp
- Stool norovirus: negative
� Stool C. difficile antigen and toxin: negative
� Stool culture: Pending
- Advance as tolerated
#Asymptomatic bacteriuria
#Air in urinary Bladder, foul-smelling urine.
Concern for colovesicular fistula versus UTI
- Recurrent UTIs in last 18 months
� UA not convincing for UTI: 11-15 squamous epithelial cells, few bacteria, leukocyte esterase 1+, nitrates negative, WBC 3-5, RBC 3-6
- Urine cx: E. coli. Sensitivities pending
� Endorsed urinary frequency. Started Augmentin 500 mg twice daily empirically. Discontinued; urinary frequency may have been due to IV fluids. Like asymptomatic bacteriuria
Colpocleisis [address] Pacheco (vaginal culture, typically for pelvic organ prolapse)
Colorectal surgery consulted
- CT abdomen pelvis with p.o. and rectal contrast (no IV contrast) to confirm colovesicular fistula: No fistula
� Colorectal surgery still suggested follow-up for diverticulitis history
� Explained the treatment for colovesical fistula is surgery; however, this can usually be done electively and any infectious complications can usually be treated medically with antibiotics; if patient clinically improves, okay for discharge from my
standpoint after CTAP is complete and follow-up to discuss definitive management
#Left Renal Masses, possible renal cell carcinoma
Urology consulted
- MRI outpatient for left renal masses
� Follow-up with urology outpatient
#Essential Hypertension
-Hold losartan and metoprolol for 24 hours and reassess. BP stable in 130-140s. Plan to resume tomorrow after patient demonstrates tolerating solid food and oral rehydration
#Anxiety and depression
-Continue sertraline
DVT proph: Lovenox
Code Status: Full Code
Anticipated Discharge: Today
Subjective/Interval History
-
Date of Service: March 07, 2025
No acute events overnight. Patient feels less weak. Her problems are more solid. Has been tolerating solid foods/low residue diet. Denies dysuria
Objective Data
-
Labs:
Laboratory Results
03/07/25
05:34
WBC 7.0
Hgb 12.9
Hct 39.2
Plt Count 249
Sodium 138
Potassium 3.6
Chloride 104
Carbon Dioxide 28
BUN 9
Creatinine 0.5 L
Glucose 98
Calcium 8.4
Total Bilirubin 0.4
AST 12 L
ALT 10
Alkaline Phosphatase 70
Vital Signs:
Vital Signs
Temp Pulse Resp BP Pulse Ox
97.5 F 67 16 127/76 97
03/07/25 07:25 03/07/25 07:25 03/07/25 07:25 03/07/25 07:25 03/07/25 11:01
I&O
03/06/25 03/07/2525
06:59 06:59 05:59
Intake Total 480 / 480 2820 / 2820
Balance 480 / 480 2820 / 2820
Review of Systems
-
History Source: Patient
All other systems: Reviewed and negative
Physical Exam
-
General: Well Developed, Well Nourished, No Apparent Distress, Comfortable and Conversant
HEENT: Normocephalic, Atraumatic, Anicteric, Nose Appears Normal and Ears Appear Normal
Respiratory: Clear to Auscultation
Cardiac: Regular Rhythm and S1/S2
GI: Soft, Nontender, Nondistended and Normal Bowel Sounds
Musculoskeletal: No Clubbing, No Cyanosis and No Edema
Skin: Warm and Dry
Neuro: Awake and Alert
Psych: Calm
--- NOTE | 2025-03-07 13:17 | W.DCSUMMARY ---
Discharge Summary
Discharge Data
Date of Admission: 03/05/25
Date of Discharge: 03/07/25
Total time spent discharging patient (in min): 35
-
Pending Results: Yes
Additional Pending Results:
Stool bacterial cultures
Hospital Course
Ms. Bell is a 74-year-old female past with PMH of urinary urgency, anxiety/depression, HTN, HLD, who presented from PCP office with weakness/lightheadedness and large volume diarrhea for 5 days, likely secondary to viral versus bacterial
gastroenteritis.
5 days prior to admission, she slipped from her bed to the floor and stayed on the ground for several hours because she was too weak to get up. She waited for to come and assist her. On following days, she was sleeping more, had decreased
p.o. intake, nausea, and multiple episodes diarrhea daily. Also complaining of generalized body aches and pains. Endorsed blackish stool 1 day, but denied gross blood. No bowel movement for 2 days. Endorsed pneumaturia, foul-smelling urine for
several months, and mild lower abdominal pain. She was treated for low-grade UTI in October. Denied fevers, chest pain, SOB, dysuria.
In the ED, WBC 7.3, UA with bacteria and positive LE, negative nitrates. CT scan showed left kidney mass concerning for RCC as well as air within the urinary bladder, concerning for colovesical fistula. Patient was admitted.
Urology and colorectal surgery were consulted. Urology recommended outpatient MRI for left renal masses. Colorectal surgery recommended abdomen pelvis CT with p.o. and rectal contrast, which demonstrated no fistula. Colorectal surgery suggested
follow-up with them for diverticulitis.
Abd/Pelvis CT with IV contrast:
1. Ill-defined mass within the lower pole of the left kidney, measuring 2.4 cm in diameter. Additional ill-defined mass within the upper pole of the left kidney measuring 2.4 cm in diameter. Findings are concerning for renal cell carcinoma. Consider
postcontrast MRI of the abdomen for further characterization and/or renal ultrasound.
2. Air within the urinary bladder. This may be related to recent instrumentation. In the absence of instrumentation, enteric vesicular fistula should be excluded.
Abd/Pelvis CT with PO and rectal contrast:
There is no CT evidence for colovesical fistula.
There is a small amount of air present within the anterior and superior bladder.
No findings that would suggest vesicovaginal fistula, but please correlate with any symptoms for vesicovaginal fistula.
Correlating with yesterday's contrast enhanced CT, evidence for 2 enhancing masses within the left kidney, one in the upper pole and one in the lower pole. These are suspicious for neoplasia/renal cell carcinoma. Further evaluation advised with
dedicated CT or MRI of the abdomen with attention to the kidneys, without and with contrast, if there are no contraindications.
Several tiny bilateral nephroliths. No evidence for ureteral calculus.
Status post cholecystectomy. Enlargement of the common hepatic duct and superior aspect of the common bile duct, stable from yesterday's CT. This is likely physiologic with no abnormality on recent liver function tests.
Tiny defect in the midline anterior abdominal wall, just superior to the umbilicus. Protrusion of a small amount of fat through this defect with no evidence for associated inflammation/edema.
Bony degenerative changes as described.
Last colonoscopy 06/[address] Madera, which showed a healthy ileocolic anastomosis, transverse TA, rectal HP, random biopsies for microscopic colitis were negative and multiple diverticula in the sigmoid, descending and transverse colon.
PSH:
Right hemicolectomy 2018 for diverticulitis and colon polyp
Colpocleisis 2022
Cholecystectomy at 21 years old
Primary diagnosis:
Vascular gastroenteritis
Secondary diagnoses:
2 left renal masses, both 2.4 cm
Air in bladder
Asymptomatic bacteriuria
History diverticulitis
#Gastroenteritis, suspect viral in nature
#Dehydration
Right hemicolectomy in 2019 at [facility] for diverticular disease and dysplastic polyp
- Stool norovirus: negative
� Stool C. difficile antigen and toxin: negative
� Stool culture: Pending
- Advance as tolerated
#Asymptomatic bacteriuria
#Air in urinary Bladder, foul-smelling urine.
Concern for colovesicular fistula versus UTI
- Recurrent UTIs in last 18 months
� UA not convincing for UTI: 11-15 squamous epithelial cells, few bacteria, leukocyte esterase 1+, nitrates negative, WBC 3-5, RBC 3-6
- Urine cx: E. coli. Sensitivities pending
� Endorsed urinary frequency. Started Augmentin 500 mg twice daily empirically. Discontinued; urinary frequency may have been due to IV fluids. Asymptomatic bacteriuria
Colpocleisis [address] Pacheco (vaginal culture, typically for pelvic organ prolapse)
Colorectal surgery consulted
- CT abdomen pelvis with p.o. and rectal contrast (no IV contrast) to confirm colovesicular fistula: No fistula
� Colorectal surgery still suggested follow-up for diverticulitis history
� Explained the treatment for colovesical fistula is surgery; however, this can usually be done electively and any infectious complications can usually be treated medically with antibiotics; if patient clinically improves, okay for discharge from my
standpoint after CTAP is complete and follow-up to discuss definitive management
#Left Renal Masses, possible renal cell carcinoma
Urology consulted
- MRI outpatient for left renal masses
� Follow-up with urology outpatient
Discharge Plan
-
Patient Disposition: Home (Routine Discharge)
Discharge Diagnosis/Procedures: Diarrhea, malaise, dehydration due to viral gastroenteritis
2.4 cm x 2 left renal masses
Air in bladder
Recurrent UTIs
Hypertension
Hyperlipidemia
Anxiety/depression
Condition: Good
Diet: Low Cholesterol and Low Sodium
Activity: No restrictions and As tolerated
Driving Restrictions: As prior to admission
Bathing Restrictions: None
Referrals:
Jose Alberto Ag MD [Family Provider, Family Practice] - in one week
Arnold Larose MD [Active, Urology]
Referral Note: call Dr Carrasco urology [phone] to follow up infection and non specific renal shadows on xray
Markus Michelle MD [Active, ColoRectal] - in two to three weeks
Additional Discharge Medication Instructions: You likely have gastritis due to a viral pathogen, which will resolve with time. Please patient to drinking lots of fluids, as you lose fluid with diarrhea.
Please follow-up with your primary care provider within a week for your hospitalization/diarrhea.
Please get an MRI to further evaluate the 2 left kidney masses and see urologist Dr. Zain Larose.
Although you do not have a fistula, culture surgery suggested to follow-up with them for your history of diverticulitis
It was a pleasure to be part of your care team.
Prescriptions:
Continued
losartan 50 mg Tablet
50 mg PO NOON
famotidine 40 mg Tablet
40 mg PO NOON
metoprolol succinate 25 mg Tablet Extended Release 24 Hr
25 mg PO NOON
sertraline 50 mg Tablet
25 mg PO NOON
acetaminophen 325 mg tablet
325 mg PO DAILY
Discontinued
loperamide 2 mg Tablet
2 mg PO BIDPRN PRN (Reason: diarrhea)
Discharge Orders:
Discharge Patient (As Directed); Ordered 03/07/25
Ordered By: Alpesh Vega
Discharge Date and Time
Discharge Date/Time: 03/07/25 13:16
Print Language: CYMRO
--- NOTE | 2025-03-07 13:56 | CM ---
F/U: Patient is discharged today and no order for VN or any other needs were communicated to AMIRAH Stallings nor any information in the progress notes to suggest discharge needs. PLAN: Home No Needs.
== END 2025-03-07 13:16 | disposition home or self-care (01) | DRG 641 ==
LOC: 2 NORTH 16:46
PROVIDERS: Physician Assistant; Physician Assistant Medical; Student in an Organized Health Care Education/Training Program; ADMITTING PHYSICIAN Hospitalist; ATTENDING PHYSICIAN Hospitalist; CONSULT PHYSICIAN Specialist; CONSULT PHYSICIAN Surgery; EMERGENCY PHYSICIAN Emergency Medicine; FAMILY PHYSICIAN Family Medicine
DX: E86.0 Dehydration (principal); C64.2 Malignant neoplasm of left kidney, except renal pelvis; A08.4 Viral intestinal infection, unspecified; N28.89 Other specified disorders of kidney and ureter; I10 Essential (primary) hypertension; E78.5 Hyperlipidemia, unspecified; K57.30 Diverticulosis of large intestine without perforation or abscess without bleeding; K21.9 Gastro-esophageal reflux disease without esophagitis; F41.9 Anxiety disorder, unspecified; F32.A Depression, unspecified; Z87.440 Personal history of urinary (tract) infections; Z79.899 Other long term (current) drug therapy
CPT/HCPCS: 74176; 74177; 80048; 80053; 81003; 81015; 82550; 83690; 85025; 85027; 87045; 87046; 87077; 87086; 87186; 87324; 87427; 87449; 87798; 96360; 99285; Q9967

== ENCOUNTER → 2025-03-18 16:27 | Outpatient (REF) | payer OTHER, SELFPAY ==
[2025-03-18 19:10] LABS: Urine Character Cloudy (Clear)
[2025-03-18 19:47] LABS: Urine Red Blood Cell 0-2 /HPF (0-2); Urine White Cell 21-25 /HPF (0-5)
== END ==
LOC: CLAB 16:27
PROVIDERS: ATTENDING PHYSICIAN Specialist
DX: N39.0 Urinary tract infection, site not specified (principal)
CPT/HCPCS: 81003; 81015; 87077; 87086; 87186

== ENCOUNTER → 2025-03-19 07:50 | Outpatient (REF) | payer OTHER, SELFPAY | LOC: MRI 07:50 | PROVIDERS: ATTENDING PHYSICIAN Specialist; FAMILY PHYSICIAN Physician Assistant Medical | DX: D41.02 Neoplasm of uncertain behavior of left kidney (principal) | CPT/HCPCS: 74183; A9575 ==